=== PATIENT | female | born 1970 | race Asian ===

== ENCOUNTER 2024-07-07 22:19 | Emergency (ER) | payer OTHER ==
[2024-07-07 22:27] VITALS: BP 177/91; PULSE 74; RESP 18; TEMP 98.2; BMI 26.5
[2024-07-07] MEDS ORDERED: KETOROLAC TROMETHAMINE 60 MG/2 ML VIAL ONE (22:34)
[2024-07-07] MEDS: KETOROLAC TROMETHAMINE 60 MG/2 ML VIAL IM ONE (22:51)
[2024-07-07] MEDS: CycloBENZAprine HCL 10 MG TABLET (FP) PO ONE (22:51)
== END 2024-07-07 23:39 | disposition home or self-care (01) ==
LOC: FER 22:19
PROC: 3E0233Z Introduction of Anti-inflammatory into Muscle, Percutaneous Approach (ICD-10-PCS; principal; 2024-07-07)
DX: M25.511 Pain in right shoulder (principal)
CPT/HCPCS: 73030-TC-RT-FY; 99284-25